=== PATIENT | female | born 1965 | race Caucasian/White ===

== ENCOUNTER 2019-12-03 10:19 | Day surgery (SDC) | payer MEDICARE, SELFPAY ==
--- NOTE | 2019-12-03 | IMM_PTH ---
PATIENT: REGLA SANCHEZ LOC: [facility] – [place] U#:[id number] AGE/SX: 54/F ROOM: RE12/03/[address]: Dr. Radha Peralta MD : 1965 BED: DIS: 12/03/2019 SPEC #: [id number] RECD: 12/04/19 10:56 STATUS: ALEKS REQ #: [id number] REESE: 12/03/19 00:[address]: Radha Peralta DEPT: IMMUNOHISTOCHEMISTRY RECD BY: Vandana Bailey ENTERED: 12/04/19 10:57 SP TYPE: IMMUNO OTHR DR: Dr. Travon Richardson MD Tissues: A - Uterine cervix, NOS Procedures: CK5-6 (initial) CK5-6 (add) KI-67 (add) P16 (add) P40 (add) PHYSICIAN & INSTITUTION [place] [address] SPECIMEN INFORMATION: Tissue Source: A - Ectocervix Clinical Info: [facility] Specimen Number: [id number] A3 & A4 CPT code: 97386, 52030 x7 METHODOLOGY: Deparaffinized sections of prefer/formalin-fixed tissue or PAP/DQ stained slides are incubated with monoclonal/polyclonal antibodies/oligonucleotide probes. Localization is made via biotin free immunoperoxidase method. Appropriate controls are performed and reacted as expected. Results on target cell population are indicated in the following table: RESULTS: ANTIBODY / CLONE RESULT Block A3 CK5-6 (D5 & 1684) positive P40 (BC28) positive P16 (E6H4) negative Ki-67 (30-9) negative Block A4 CK5-6 (D5 & 1684) positive P40 (BC28) positive P16 (E6H4) negative Ki-67 (30-9) negative These tests were developed and their performance characteristics determined by [facility]. They may not have been cleared or approved by the U.S. Food and Drug Administration. The FDA has determined that such clearance or approval is not necessary. The above immunohistochemical/dualISH markers are ordered and reviewed by the Pathologist. INTERPRETATION: A. Ectocervix, LEEP conization: No evidence of dysplasia. AM:jeny 12/07/19
[2019-12-03 11:09] VITALS: BP 163/77; PULSE 81; RESP 18; TEMP 36.7; O2SAT 100; BMI 21.2
[2019-12-03] MEDS: Acetaminophen 500 MG Tablet 1000 MG PO (11:18)
[2019-12-03] MEDS: Gabapentin 100 MG Capsule 200 MG PO (11:18)
[2019-12-03] MEDS: Ketorolac 30 MG/ML Syringe IV (11:25)
[2019-12-03] MEDS: Lactated Ringers 1,000 ML 100 ML IV (11:27)
--- NOTE | 2019-12-03 11:40 | CONE_PTH ---
PATIENT: REGLA SANCHEZ LOC: [facility] [place] U#:[id number] AGE/SX: 54/F ROOM: RE12/03/[address]: Dr. Radha Peralta MD : 1965 BED: DIS: 12/03/2019 SPEC #: [id number] RECD: 12/03/19 13:23 STATUS: ALEKS RERosa #: [id number] REESE: 12/03/19 11:[address]: Radha Peralta DEPT: SURGICAL PATHOLOGY RECD BY: Marty Freeman ENTERED: 12/03/19 13:59 SP TYPE: Leep Cone RERE DR: Dr. 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 Ectocervix, LEEP conization: Mild chronic inflammation. No evidence of dysplasia. See comment. B. Endocervix, curettings: Strips of benign superficial endocervix. No evidence of dysplasia. AM:jeny 12/08/19 COMMENT A. Immunohistochemistry ([id number]) supports the above diagnosis. MICROSCOPIC DESCRIPTION Slides are reviewed. GROSS DESCRIPTION A - Received in fixative is one container labeled with the patient's name and designated ectocervix. The specimen consists of a donut-shaped fragment of glistening, chandra mucosa measuring 2.4 cm in diameter and 0.8 cm in thickness. The 12 o'clock position has been marked with a suture. No gross lesions are identified. The specimen is radially sectioned and totally submitted in four cassettes as follows: 1 - 12 to 3 o'clock, 2 - 3 to 6 o'clock, 3 - 6 to 9 o'clock and 4 - 9 to 12 o'clock. B - Received in fixative is one container labeled with the patient's name and designated endocervical curettings. The specimen consists of light chandra mucoid material aggregating to 2 x 1 x <0.1 cm. The specimen is totally submitted in one cassette. / ROBERTO:jeny 12/03/19 TC:5 CPT: 97404, 19304
--- NOTE | 2019-12-03 12:12 | DCINST_ITS ---
Discharge Diet: No Restrictions Discharge Activity: Return to Normal Activity, May not drive while taking narcotic pain medications. May shower in (days): 1 May resume sexual activity in: 2 weeks Weight Bearing Status: Weight bearing as tolerated Lifting Restrictions: 10 lbx x 48 hrs Call your doctor if you observe: Fever of 101 or Higher, Using more than one pad per hour - for 2 hrs eder row Allergies/Adverse Reactions: Allergies Gadolinium-MRI Contrast Medium [CONTRAST] Allergy (Verified 12/03/19 11:06) Unknown hydrochlorothiazide Allergy (Verified 12/03/19 11:06) Unknown plastic tape Allergy (Uncoded 12/03/19 11:06) Rash Medications to take at Discharge Lisinopril [Zestril] 40 mg PO DAILY 12/02/19 Sertraline HCl [Zoloft] 50 mg PO DAILY 12/02/19 Primary Care Physician: Travon Richardson MD [Primary Care Provider] - Test Results: Test results from this visit will be discussed in further detail at your follow- up appointment, if applicable. Please Follow Up With: Radha Peralta MD - [phone] When: 2-4 weeks as scheduled or as needed
[2019-12-03] MEDS: FERRIC SUBSULFATE 8 GM SOLN (12:28)
--- NOTE | 2019-12-03 12:30 | OP.PCM_ITS ---
Report of Operation Date of Procedure: 12/03/19 Pre-Operative Diagnosis: High-grade squamous intraepithelial lesion of the cervix, anxiety over health care procedures Post-Operative Diagnosis: Same Surgery/Procedure Performed:: LEEP of the cervix Description of Surgical Findings:: Normal-appearing cervix and vagina poultry husbandry worker: None Type of Anesthesia:: MAC/Supplemental/Local Anesthesiologist: Dung Silverio Special Medications: none Specimen's removed: Ectocervix and endocervical curettings Drains: none Estimated Blood Loss (mL): 0 Fluids Replaced: 500 Description of Procedure: The patient was taken to the operating room where she was prepped and draped in a dorsal lithotomy position. The LEEP speculum was placed in the vagina. A paracervical block was performed with 1% Xylocaine with 1-100,000 epinephrine solution. The ectocervix was amputated with the 8 mm loop. An endocervical curettage was then performed. The specimens were handed off and labeled and sent to pathology. Hemostasis of the cervix was obtained with ball cautery. Some Monsel solution was placed over the cauterized cervix. Hemostasis was assured. The instruments were removed from the vagina. A vaginal sweep was completed by me. Sponge and needle counts were correct. Specimens: Ectocervix and endocervical curettings Findings: Normal vagina, grossly normal cervix Grafts/Implants Used: none - Complications none - Admit VTE Documentation VTE Present on Admission: No VTE Mechan Device Prophylaxis: [facility] [place] VTE Pharm Prophylaxis ordered?: No Reason prophylaxis not ordered:: Procedure Not Indicated
[2019-12-03 12:38] VITALS: BP 151/77; BP 163/77; PULSE 65; RESP 16; TEMP 37.2; O2SAT 100
[2019-12-03 12:45] VITALS: BP 161/74; BP 163/77; PULSE 69; RESP 16; O2SAT 100
[2019-12-03 13:00] VITALS: BP 163/77; BP 168/76; PULSE 62; RESP 16; O2SAT 100
[2019-12-03 13:09] VITALS: BP 152/72; BP 163/77; PULSE 69; RESP 16; TEMP 36.8; O2SAT 100
[2019-12-03] MEDS: HYDROcodone Bitartrate/Apap 5/325 Tablet PO (13:41)
[2019-12-03 14:09] VITALS: BP 163/77
== END 2019-12-03 14:37 | disposition home or self-care (01) ==
LOC: SDC 10:26 → AC 10:29
PROVIDERS: PCP Family Medicine; Referring Provider Obstetrics & Gynecology; Visit Provider Obstetrics & Gynecology
PROC: 0UBC7ZZ Excision of Cervix, Via Natural or Artificial Opening (ICD-10-PCS; CPT 57522; principal; 2019-12-03 11:25)
DX: R87.613 High grade squamous intraepithelial lesion on cytologic smear of cervix (HGSIL) (principal); F90.9 Attention-deficit hyperactivity disorder, unspecified type; F41.9 Anxiety disorder, unspecified; K21.9 Gastro-esophageal reflux disease without esophagitis; F32.9 Major depressive disorder, single episode, unspecified; I10 Essential (primary) hypertension; M41.9 Scoliosis, unspecified; F43.10 Post-traumatic stress disorder, unspecified; M51.36 Other intervertebral disc degeneration, lumbar region; M50.30 Other cervical disc degeneration, unspecified cervical region; Z78.0 Asymptomatic menopausal state; Z79.899 Other long term (current) drug therapy; F17.210 Nicotine dependence, cigarettes, uncomplicated
CPT/HCPCS: 00940; 57522; 88305; 88307; 88341; 88342; J7120; J2405

== ENCOUNTER → 2023-05-24 | Outpatient (CLI) | payer MEDICARE, SELFPAY ==
--- NOTE | 2023-05-24 15:44 | US_ITS ---
STUDY: THYROID ULTRASOUND REASON FOR EXAM: Female, 57 years old. NODULE TECHNIQUE: Ultrasound evaluation of the thyroid was performed with real-time and static rodriguez-scale imaging. COMPARISON: None. FINDINGS: RIGHT LOBE: The right lobe of the thyroid gland measures 4.9 x 1.7 x 1.9 cm. There is a heterogeneous echotexture. Nodule 1:10 x 7 x 10 mm mixed cystic and solid isoechoic wider than tall smoothly marginated nodule with no echogenic foci (TR 2) in the mid right lobe consistent with an adenoma. LEFT LOBE: The left lobe of the thyroid gland measures 4.0 x 1.2 x 1.3 cm. There is a heterogeneous echotexture. There are no demonstrated solid, cystic or complex lesions. ISTHMUS: The isthmus measures 4 mm thick. . The regional lymph nodes are normal. US/Thyroid IMPRESSION: Thyroiditis with an adenoma in the right lobe. Electronically Signed: Pawel Maier MD at 21:36 EDT ,
== END | disposition home or self-care (01) ==
DX: E04.1 Nontoxic single thyroid nodule (principal)
CPT/HCPCS: 76536

== ENCOUNTER → 2024-06-12 | Outpatient (CLI) | payer MEDICARE, SELFPAY ==
--- NOTE | 2024-06-12 12:35 | RAD_ITS ---
EXAM: XR LEFT FOOT COMPLETE, 3 OR MORE VIEWS CLINICAL INDICATION: PAIN TECHNIQUE: Frontal, lateral and oblique views of the left foot. COMPARISON: No relevant prior studies available. FINDINGS: BONES/JOINTS: Moderate space narrowing with mild marginal osteophytes 1st metatarsal phalangeal joint. No marginal erosions. No acute fracture. No subluxation. Normal alignment. No sclerotic or destructive changes observed. SOFT TISSUES: Moderate soft tissue swelling adjacent to the 1st metatarsal phalangeal joint. No radiopaque foreign body. RAD/Foot min 3 Views IMPRESSION: 1. Moderate soft tissue swelling adjacent to the 1st metatarsal phalangeal joint. 2. 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 Electronically Signed: Gene Vela MD at 17:58 EDT ,
== END | disposition home or self-care (01) ==
LOC: MTRAD 12:33
PROVIDERS: PCP Family Medicine; Referring Provider Family Medicine; Visit Provider Family Medicine
DX: M79.672 Pain in left foot (principal)
CPT/HCPCS: 73630

== ENCOUNTER → 2024-08-04 | Outpatient (CLI) | payer MEDICARE, SELFPAY ==
--- NOTE | 2024-08-04 09:00 | BD_ITS ---
STUDY: DUAL ENERGY X-RAY ABSORPTIOMETRY / DXA REASON FOR EXAM: Female, 58 years old. M85.89 TECHNIQUE: Bone Mineral Density (BMD) measurements of lumbar spine and bilateral hips were obtained. COMPARISON: None. FINDINGS: Lumbar Spine (L1-L4): g/cm2 (1.061) / T-score (0.4) / Z-score (1.8) Findings are suggestive of normal bone density with a low fracture risk. Left Femur Total: g/cm2 (0.805) / T-score (-1.1) / Z-score (-0.1) Left Femoral Neck: g/cm2 (0.677) / T-score (-1.6) / Z-score (-0.2) Right Femur Total: g/cm2 (0.797) / T-score (-1.2) / Z-score (-0.2) Right Femoral Neck: g/cm2 (0.637) / T-score (-1.9) / Z-score (-0.6) BD/Dexa Bone Density Study IMPRESSION: The patient is considered osteopenic as outlined below according to World [employer] Organization (WHO) criteria with a moderate fracture risk. Reference Information: The T-score is the number of standard deviations above or below the standard which is normal for young adults at their peak bone mineral density. The World Health Organization (WHO) interprets the T-scores as follows: Above -1 Normal bone density Between -1 and -2.5 Osteopenia Equal to / or below -2.5 Osteoporosis As a practical clinical guideline, osteopenia may be graded as follows: Mild -1 through -1.5 Moderate -1.6 through -2.0 Severe -2.1 through -2.4 The Z-score is the number of standard deviations above or below age-matched controls. A Z-score of less than -1.5 would be considered abnormal. References: 1. NIH Osteoporosis and Related Bone Diseases www osteo.org 2. International Society for Clinical Densitometry www iscd.org 3. National Osteoporosis Foundation www nof.org Electronically Signed: Aldo Payan MD at 13:35 EDT ,
== END | disposition home or self-care (01) ==
LOC: OPBD 08:53
PROVIDERS: PCP Family Medicine; Referring Provider Podiatrist Foot & Ankle Surgery; Visit Provider Podiatrist Foot & Ankle Surgery
DX: M85.88 Other specified disorders of bone density and structure, other site (principal)
CPT/HCPCS: 77080

== ENCOUNTER → 2024-08-07 | Outpatient (CLI) | payer MEDICARE, SELFPAY ==
--- NOTE | 2024-08-07 09:16 | VDLE_ITS ---
Reason For Study: BLE Pain RIGHT LEFT GSV is normal. GSV is normal. CFV is compressible, spontaneous, phasic, CFV is compressible, spontaneous, phasic, competent and demonstrates normal competent, and demonstrates normal augmentation. augmentation. FV is compressible, spontaneous, phasic, FV is compressible, spontaneous, phasic, competent and demonstrates normal competent and demonstrates normal augmentation. augmentation. POP V is compressible, spontaneous, phasic, POP V is compressible, spontaneous, phasic, competent and demonstrates normal competent and demonstrates normal augmentation. augmentation. T/P Trunk is compressible. T/P Trunk is compressible. PTV is compressible. PTV is compressible. RT PerV is compressible. LT PerV is compressible. Procedure This is a venous duplex using B-mode, color flow and spectral Doppler. Exam performed in department. The exam was diagnostic. VL/Venous Duplex US - Vahid Extrem Interpretation Summary Deep veins of the lower extremities are bilaterally patent and compressible seg mentally. There is no evidence of deep vein thrombosis on either side. Valvular competence appears in tact within the proximal deep venous systems bilaterally. The great saphenous veins appear bila terally patent and compressible segmentally. Ordering Physician: Luigi Parmar Referring Physician: Gem Greenberg Performed By: Bladimir Otto, RVT
--- NOTE | 2024-08-07 09:16 | ART_ITS ---
Reason For Study: PVD Procedure A bilateral lower extremity continuous wave Doppler with analog waveform analysis,segmental pressures,and ankle brachial indexes without exercise. Left Segmental Pressures Left brachial= 124mmHg. Left posterior tibial artery = 131mmHg. Left dorsalis pedis artery = 133mmHg. Left digit = 100 mmHg. The left posterior tibial artery waveforms are triphasic. The left dorsalis pedis waveforms are triphasic. Right Segmental Pressures Right brachial= 127mmHg. Right posterior tibial artery = 139mmHg. Right dorsalis pedis artery = 142mmHg. Right digit = 103 mmHg. The right posterior tibial artery waveforms are triphasic. The right dorsalis pedis waveforms are triphasic. Indices The right ankle brachial index by the posterior tibial artery is 1.09. The right ankle brachial index by the dorsalis pedis is 1.12. The right digital-brachial index is 0.81. The left ankle brachial index by the posterior tibial artery is 1.03. The left ankle brachial index by the dorsalis pedis is 1.05. The left digital-brachial index is 0.79. VL/Lower Ext Art Exam w/o Exercis Interpretation Summary Triphasic Doppler waveforms are noted at ankle level bilaterally. Pulse-volume recordings appear satisfactory bilaterally. Resting ankle-brachial indices are normal bilaterally . Digital-brachial indices are normal bilaterally. There is no evidence of significant arterial occlusive disease in the lower ext remities bilaterally. Ordering Physician: Luigi Parmar Referring Physician: Gem Greenberg Performed By: Bladimir Otto, RVT
== END | disposition home or self-care (01) ==
LOC: CVS 09:12
PROVIDERS: PCP Family Medicine; Referring Provider Podiatrist Foot & Ankle Surgery; Visit Provider Podiatrist Foot & Ankle Surgery
DX: I73.89 Other specified peripheral vascular diseases (principal); M79.605 Pain in left leg; M79.604 Pain in right leg
CPT/HCPCS: 93923; 93970

== ENCOUNTER 2025-01-04 14:14 | Emergency (ER) | payer MEDICARE, SELFPAY ==
[2025-01-04 14:15] VITALS: BP 144/71; PULSE 94; RESP 16; TEMP 36.9; O2SAT 98; BMI 22.6
== END 2025-01-04 14:37 | disposition left against medical advice (07) ==
LOC: ED 14:40
PROVIDERS: PCP Family Medicine
DX: M10.9 Gout, unspecified (principal)

== ENCOUNTER → 2025-01-20 | Outpatient (CLI) | payer OTHER, SELFPAY ==
--- NOTE | 2025-01-20 12:51 | VDLE_ITS ---
Reason For Study Reason For Study: Left leg pain RIGHT LEFT CFV is compressible, spontaneous, phasic, competent GSV is normal. and demonstrates normal augmentation. CFV is compressible, spontaneous, phasic, competent, Procedure and demonstrates normal augmentation. This is a venous duplex using B-mode, color flow and FV is compressible, spontaneous, phasic, competent spectral Doppler. and demonstrates normal augmentation. Exam performed in department. POP V is compressible, spontaneous, phasic, competent A preliminary report was called and/or faxed to and demonstrates normal augmentation. Dionicio. T/P Trunk is compressible. PTV is compressible. LT PerV is compressible. Nonvascularized structure noted in thr left popliteal fossa that measures 1.06 x 2.99 x 4.13 cm. VL/Venous Duplex US, Unilateral Interpretation Summary Deep veins of the left lower extremity are patent and compressible segmentally. There is no evidence of left lower extremity deep vein thrombosis. Valvular competence appears intact within the p roximal deep venous system on the left . The left great saphenous vein appears patent and compressible segmentally. A no n-vascular, hypoechoic structure is noted in the left popliteal space, measuring 1.06 cm x 2.99 cm x 4.13 cm. This probab ly represents a popliteal cyst. Clinical correlation is advised. The right common femoral vein is patent and compressibl e . Ordering Physician: Gem Greenberg Referring Physician: Gem Greenberg Performed By: Lucia Quesada RVT
== END | disposition home or self-care (01) ==
PROVIDERS: PCP Family Medicine; Referring Provider Family Medicine; Visit Provider Family Medicine
DX: M79.605 Pain in left leg (principal)
CPT/HCPCS: 93971